=== PATIENT | male | born 1945 | race Hispanic/Latino ===

== ENCOUNTER 2016-10-03 09:03 | Observation (INO) | payer MEDICARE, OTHER ==
[2016-10-03 09:04] VITALS: BMI 31.9
--- NOTE | 2016-10-03 09:26 | C.PDOC ---
History Of Present Illness 70-year-old male, Anxiety, Asthma, Atrial Fibrillation, Bipolar Disorder, COPD, Depression, Diabetes, Emphysema, Gastritis, Gall Bladder Disease, Hypertension, Hypercholesterolemia, Parkinson's Disease, Schizophrenia, Seizures, presents to the emergency department accompanied by , acting as historian with complaints of recurrent agitation. Patient has been agitated for the past three days. He has limited improvement with "calming techniques" that normally does. Patient has had these episodes in the past, and these techniques normally take careof problem, but worsened today. Patient compliant with medications. LIMITED DUE TO CLIN COND HX PER VIA TRANS RECURRENT AGITATION PER . AGITATED SINCE 3 DAYS, LIMITED IMPROVE W USUAL "CALMING TECHNIQUES" THAT RECOGNIZES AND RESPONDS TO FAMILY AT BEDSIDE. Time Seen by Provider: 10/03/16 09:20 Past Medical History Reviewed: Historical Data, Nursing Documentation, Vital Signs Vital Signs: Last Vital Signs Temp 97.9 F 10/03/16 15:58 Pulse 102 H 10/03/16 15:58 Resp 18 10/03/16 15:58 BP 107/73 10/03/16 15:58 Pulse Ox 95 10/03/16 15:58 - Medical History PMH: Anxiety, Asthma, Atrial Fibrillation, Bipolar Disorder, COPD, Depression, Diabetes, Emphysema, Gastritis, Gall Bladder Disease, HTN, Hypercholesterolemia , Parkinson's Disease, Schizophrenia, Seizures Denies: Hepatitis, HIV, Kidney Stones, Chronic Kidney Disease, Sexually Transmitted Disease Surgical History: Appendectomy, Hernia Repair (ventral) - [facility] Procedures CLOSURE SKIN & SUBCUTANEOUS NEC (06/12/14) ESOPHAGOGASTRODUODENOSCOPY [EGD] W/CLOSED BIOPSY (01/22/14) GROUP PSYCHOTHERAPY (02/05/16) INDIVID PSYCHOTHERAP NEC (09/18/14) INDIVIDUAL PSYCHOTHERAPY, BEHAVIORAL (09/01/16) INDIVIDUAL PSYCHOTHERAPY, COGNITIVE-BEHAVIORAL (06/22/15) INJECT/INFUSE NEC (03/24/14) INTRODUCTION OF SERUM/TOX/VACCINE INTO MUSCLE, PERC APPROACH (02/14/15) OTHER GROUP THERAPY (09/18/14) PSYCHIA INTERV/EVAL NEC (09/07/13) PSYCHIAT DRUG THERAP NEC (06/19/13) Family History: States: Unknown Family Hx - Social History Hx Tobacco Use: No Hx Alcohol Use: No Hx Substance Use: No - Immunization History Hx Tetanus Toxoid Vaccination: No Hx Influenza Vaccination: No Hx Pneumococcal Vaccination: No Review Of Systems Review Of Systems: ROS cannot be obtained secondary to pt's inabilty to answer questions. Physical Exam - Physical Exam Appears: Non-toxic, No Acute Distress, Agitated, Other (RECOGNIZES AND RESPONDS TO AT BEDSIDE) Skin: Warm, Dry, No Rash Head: Atraumatic Eye(s): bilateral: Normal Inspection Neck: Normal ROM Respiratory: No Accessory Muscle Use Extremity: Normal ROM ED Course And Treatment - Laboratory Results Result Diagrams: 10/03/16 10:00 10/03/16 10:00 ECG: Interpreted By Me ECG Rhythm: Sinus Rhythm ECG Interpretation: Normal Rate From EC - Radiology CXR: Interpreted by Me CXR Interpretation: Yes: No Acute Disease ED OBSERVATION Discharge: Yes Date of observation admission: 10/03/16 Time of observation admission: 09:30 - Observation admission statement Patient is being placed in observation because:: AGITATION - Goals of Observation Goals of observation are:: SX IMPROVE, MED CLEAR - Progress Note Progress Note: 10/03/16 11:18 PERSIST AGITATION, NO CHANGE COMPARED TO PRIOR EXAM. WILL GIVE IM MEDS 10/03/16 13:28 PT APEPARS BETTER, NO AGITATION. MILD ANXIETY BUT CALM. PS AFRAID OF GOING HOME BC SX WILL RECUR. PENDING PSYCH APPT 10/05. MED CLEAR FOR PSYCH EVAL. CRISIS NOTIFIED 10/03/16 15:41 ACCEPTED FOR TRANSFER TO [facility] REYNOLDS Disposition Counseled Patient/Family Regarding: Studies Performed, Diagnosis - Disposition Disposition: Trans to Other Acute Care Hosp Disposition Time: 15:42 Condition: STABLE - Clinical Impression Clinical Impression: Schizoaffective disorder, Anxiety - Scribe Statement The provider has reviewed the documentation as recorded by the Yan Beebe All medical record entries made by the [place] were at my direction and personally dictated by me. I have reviewed the chart and agree that the record accurately reflects my personal performance of the history, physical exam, medical decision making, and the department course for this patient. I have also personally directed, reviewed, and agree with the discharge instructions and disposition.
[2016-10-03 10:05] LABS: BASO % 0.5 % (0.0-2.0); EOS # 0.1 K/uL (0.0-0.7); EOS % 0.7 % (0.0-4.0); HEMATOCRIT 43.3 % (35.0-51.0); LYMPH # 1.4 K/uL (1.0-4.3); LYMPH % 16.5 % (20.0-40.0); MEAN CORPUSCULAR HEMOGLOBIN 30.3 pg (27.0-31.0); MEAN CORPUSCULAR HGB CONC 33.4 g/dL (33.0-37.0); MEAN PLATELET VOLUME 7.7 fL (7.2-11.7); MONO # 0.7 K/uL (0.0-0.8); NRBC % 0.1 % (0.0-2.0); RED CELL DISTRIBUTION WIDTH 14.7 % (11.5-14.5); WHITE BLOOD COUNT 8.4 K/uL (4.8-10.8)
[2016-10-03 10:07] LABS: MEAN CELL VOLUME 90.6 fL (80.0-94.0)
[2016-10-03 10:11] LABS: CHLORIDE 101 mmol/L (98-107); POTASSIUM 3.4 mmol/L (3.6-5.2); SODIUM 137 mmol/L (132-148)
[2016-10-03 10:13] LABS: GFR AFRICAN-AMERICAN > 60
[2016-10-03 10:14] LABS: BLOOD UREA NITROGEN 15 mg/dL (9-20); CARBON DIOXIDE 16 mmol/L (22-30); GLUCOSE,RANDOM 167 mg/dL (75-110)
[2016-10-03 10:28] LABS: GRANULAR CAST 1 /lpf (0-1); RBC URINE 1 /hpf (0-3); URINE BILIRUBIN NEGATIVE (NEGATIVE); URINE BLOOD NEGATIVE (NEGATIVE); URINE COLOR Yellow (YELLOW); URINE GLUCOSE (UA) NORMAL (Normal); URINE KETONE TRACE mg/dL (NEGATIVE); URINE LEUKOCYTE ESTERASE NEG Leu/uL (Negative); URINE PROTEIN 2+ mg/dL (NEGATIVE); WBC URINE 1 /hpf (0-5)
--- NOTE | 2016-10-03 11:34 | RAD ---
PROCEDURE: CHEST RADIOGRAPH, 1 VIEW HISTORY: Altered mental status COMPARISON: 01/24/2014 FINDINGS: LUNGS: Moderate venous congestion. Patchy left basilar airspace opacity with question trace left pleural effusion. Bilateral paratracheal prominence may represent prominent vascularity. PLEURA: As above. CARDIOVASCULAR: Cardiomegaly. Question opacity projects over the inferior heart, nonspecific. Correlation with lateral view may be helpful. OSSEOUS STRUCTURES: No significant abnormalities. VISUALIZED UPPER ABDOMEN: Normal. OTHER FINDINGS: None. IMPRESSION: Moderate venous congestion. Patchy left basilar airspace opacity with question trace left pleural effusion. Bilateral paratracheal prominence may represent prominent vascularity. Cardiomegaly. Question opacity projects over the inferior heart, nonspecific. Correlation with lateral view may be helpful.
--- NOTE | 2016-10-03 12:46 | CT ---
PROCEDURE: CT HEAD WITHOUT CONTRAST. HISTORY: Altered mental status. Agitation. COMPARISON: None available. TECHNIQUE: Axial computed tomography images were obtained through the head/brain without intravenous contrast. Radiation dose: Total exam DLP = 884 mGy-cm. This CT exam was performed using one or more of the following dose reduction techniques: Automated exposure control, adjustment of the mA and/or kV according to patient size, and/or use of iterative reconstruction technique. FINDINGS: HEMORRHAGE: No intracranial hemorrhage. BRAIN: Scattered focal lucencies in the subcortical and periventricular white matter suggestive for chronic microvascular ischemic change. VENTRICLES: Unremarkable. No hydrocephalus. CALVARIUM: Unremarkable. PARANASAL SINUSES: Prominent mucosal thickening and opacification of the left maxillary sinus and ethmoid air cells. MASTOID AIR CELLS: Unremarkable as visualized. No inflammatory changes. OTHER FINDINGS: None. IMPRESSION: Chronic microvascular ischemic changes. Prominent mucosal thickening and opacification of the left maxillary sinus and ethmoid air cells. If focal neurologic deficit persists, consider MRI.
[2016-10-03 15:58] VITALS: RESP 18; TEMP 97.9
[2016-10-03 17:34] VITALS: BP 121/73; PULSE 98; O2SAT 96
--- NOTE | 2016-10-04 14:03 | CARD ---
APPROVED REPORT EKG Measurement Heart [id number] <Conclusion> Normal sinus rhythm Normal ECG
== END 2016-10-03 15:42 | disposition home or self-care (01) ==
LOC: C.ER 09:03 → C.9OBSV 09:30
PROVIDERS: ADMIT Emergency Medicine; ATTEND Emergency Medicine
DX: F25.9 Schizoaffective disorder, unspecified (principal); F41.9 Anxiety disorder, unspecified; I10 Essential (primary) hypertension; I48.91 Unspecified atrial fibrillation; J44.9 Chronic obstructive pulmonary disease, unspecified; R56.9 Unspecified convulsions; E78.00 Pure hypercholesterolemia, unspecified; E11.9 Type 2 diabetes mellitus without complications; F19.10 Other psychoactive substance abuse, uncomplicated
CPT/HCPCS: 36415; 70450; 71010; 80048; 81001; 85025; 94770; 96372; G0378; G0480